=== PATIENT | female | born 1940 | race Caucasian/White ===

== ENCOUNTER 2017-12-23 23:37 | Observation (INO) | payer OTHER ==
[2017-12-23 23:42] VITALS: BMI 23.8
--- NOTE | 2017-12-23 23:57 | PDOC ---
History of Present Illness - General History Source: Care Provider (Nurse at [facility] ) Exam Limitations: No Limitations (Poor historian ) - History of Present Illness Initial Comments: 12/24/17 00:42 The patient is a 77 year old female with past medical history of schizophrenia ( catatonic) presents to the emergency department via EMS after a fall. The patient is a resident at the [facility]. As per the nurse, her neighbor found her on the floor and they needed assistance to help her up, she felt weak all over. The nurse reports she fell 2 days ago from where she stopped eating anything or taking her medication, risperidone and Ativan. The patient refused to eat anything all day today and only wanted to drink her coffee and smoke cigarettes. The patient is DNR and DNI. Allergies: No allergies. Social History: None reported <Alka Mclaughlin - Last Filed: 12/24/17 01:37> <Marilu Sotelo - Last Filed: 12/24/17 01:58> - General Chief Complaint: Injury Stated Complaint: FALL Time Seen by Provider: 12/23/17 23:57 Past History <Alka Mclaughlin - Last Filed: 12/24/17 01:37> - Suicide/Smoking/Psychosocial Hx Smoking History: Never smoked Have you smoked in the past 12 months: No Information on smoking cessation initiated: No Hx Alcohol Use: No Drug/Substance Use Hx: No <Marilu Sotelo - Last Filed: 12/24/17 01:58> - Past Medical History Allergies/Adverse Reactions: Allergies Allergy/AdvReac Type Severity Reaction Status Date / Time No Known Allergies Allergy Verified 12/24/17 00:04 Home Medications: Ambulatory Orders LORazepam [Ativan] 1 mg PO BID 12/24/17 Multivitamins [Tab-A-Vit -] 1 tab PO DAILY 12/24/17 Protein Supplement [Promod] 946 ml PO DAILY 12/24/17 Risperidone [Risperdal M-Tab] 3 mg PO BID 12/24/17 Review of Systems - Review of Systems Able to Perform ROS?: No (Unable to attain. ) <Alka Mclaughlin - Last Filed: 12/24/17 01:37> *Physical Exam - Vital Signs Last Vital Signs Temp Pulse Resp BP Pulse Ox 97.4 F L 88 18 129/64 97 12/23/17 23:41 12/23/17 23:41 12/23/17 23:41 12/23/17 23:41 12/23/17 23:41 - Physical Exam Comments: 12/24/17 00:45 GENERAL: Awake, alert, and fully oriented, in no acute distress HEAD: No signs of trauma EYES: PERRLA, EOMI, sclera anicteric, conjunctiva clear ENT: Auricles normal inspection, hearing grossly normal, nares patent, oropharynx clear without exudates. Moist mucosa NECK: Normal ROM, supple, no lymphadenopathy, JVD, or masses LUNGS: Breath sounds equal, clear to auscultation bilaterally. No wheezes, and no crackles HEART: Regular rate and rhythm, normal S1 and S2, no murmurs, rubs or gallops ABDOMEN: Soft, nontender, normoactive bowel sounds. No guarding, no rebound. No masses EXTREMITIES: (+) Left wrist bruising. (+)ecchymosis of the left shoulder, under her left arm and lateral aspect of the left ribs. Normal range of motion, no edema. No clubbing or cyanosis. No cords or tenderness NEUROLOGICAL: (+) Catatonic. Cranial nerves II through XII grossly intact. Normal speech. SKIN: Warm, Dry, normal turgor, no rashes or lesions noted. <Alka Mclaughlin - Last Filed: 12/24/17 01:37> - Vital Signs Last Vital Signs Temp Pulse Resp BP Pulse Ox 97.4 F L 88 18 129/64 97 12/23/17 23:41 12/23/17 23:41 12/23/17 23:41 12/23/17 23:41 12/23/17 23:41 <Marilu Sotelo - Last Filed: 12/24/17 01:58> ED Treatment Course - LABORATORY CBC & Chemistry Diagram: 12/24/17 00:55 12/24/17 00:55 - Medications Given in the ED: ED Medications Discontinued Medications Generic Name Dose Route Start Last Admin Trade Name Freq PRN Reason Stop Dose Admin Lorazepam 1 mg 12/24/17 00:15 12/24/17 00:23 Ativan - PO 12/24/17 00:16 1 mg ONCE ONE Administration Risperidone 3 mg 12/24/17 00:14 12/24/17 00:23 Risperdal - PO 12/24/17 00:15 3 mg ONCE ONE Administration <Alka Mclaughlin - Last Filed: 12/24/17 01:37> - LABORATORY CBC & Chemistry Diagram: 12/24/17 00:55 12/24/17 00:55 <Marilu Sotelo - Last Filed: 12/24/17 01:58> Medical Decision Making - Medical Decision Making 12/24/17 00:24 a/p: 77yo female from [facility] arrives via ambulance for eval of a fall -pt with a hx of schizophrenia -pt states she did not fall, however the fall was witnessed by the roommate -discussed the case with the nurse providing for the patient - pt is a DNR/I - faxing PANCHO to the ED -per the nurse caring for the patient, the neighbor came out and said the patient fell. the patient was seen between the bed and the closet and unable to get up without assistance. per the nurse, the patient has not taken her meds in 2 days and also hasn't eaten anything other than coffee in 2 days. second fall in 2 days. -pt unable to provide any hx -pt was willing to take her meds upon arrival in the ED - given risperidone and ativan in the ED -will obtain labs, ua, ct head and c spine -nonfocal neuro exam, other than pt is confused- but per nurse, pt is confused at baseline 12/24/17 01:03 upon getting the patient fully undressed, ecchymosis to L wrist, ecchymosis to L shoulder, ecchymosis to L lateral ribs will obtain ct chest to eval for rib fx cxr shows scoliosis and kyphosis of the t spine 12/24/17 01:[address] the [address] to CT, attempting to climb out of the stretcher, will medicate with ativan 1mg IM 12/24/17 01:55 labs reviewed, cbc and cmp without acute findings trop negative ck 385 pt will be signed out to the oncoming ed physician pending ct imaging, ua and further eval of fall tonight <Marilu Sotelo - Last Filed: 12/24/17 01:58> *DC/Admit/Observation/Transfer - Attestations Scribe Attestion: 12/24/17 00:47 Documentation prepared by Alka Mclaughlin, acting as medical director for Marilu Sotelo DO. <Alka Mclaughlin - Last Filed: 12/24/17 01:37> - Attestations Physician Attestion: 12/24/17 01:58 I, Dr. Marilu Sotelo DO, attest that this document has been prepared under my direction and personally reviewed by me in its entirety. I further attest, that it accurately reflects all work, treatment, procedures and medical decision -making performed by me. <Marilu Sotelo - Last Filed: 12/24/17 01:58> Diagnosis at time of Disposition: Fall, Shoulder contusion
[2017-12-24] MEDS ORDERED: risperiDONE 1 MG TABLET (FP) PO ONE (00:14)
[2017-12-24] MEDS ORDERED: LORazepam 1 MG TABLET PO ONE (00:15)
[2017-12-24] MEDS ORDERED: SODIUM CHLORIDE 0.9% 1000 ML INFUS.BAG IV ONE (00:16)
[2017-12-24] MEDS ORDERED: risperiDONE 0.5 MG TABLET (FP) ONE (00:17)
[2017-12-24] MEDS ORDERED: LORazepam 0.5 MG TABLET ONE (00:17)
[2017-12-24 01:08] LABS: BASO % 0.3 % (0-2.0); EOS % 0.1 % (0-4.5); HEMOGLOBIN 12.9 GM/dL (10.7-15.3); LYMPH % 14.9 % (8-40); MCH 29.2 pg (25.7-33.7); MEAN CELL VOLUME 85.8 fl (80-96); MEAN PLT VOLUME 8.2 fl (7.5-11.1); MONO % 18.3 % (3.8-10.2); NEUT % 66.4 % (42.8-82.8); PLATELET COUNT 160 K/MM3 (134-434); RBC 4.42 M/mm3 (3.60-5.2); RDW 15.5 % (11.6-15.6); WHITE BLOOD COUNT 5.6 K/mm3 (4.0-10.0)
[2017-12-24 01:49] LABS: ALBUMIN 3.5 g/dl (3.4-5.0); ANION GAP 11 (8-16); BILIRUBIN,TOTAL 0.7 mg/dL (0.2-1.0); BLOOD UREA NITROGEN 10 mg/dL (7-18); CALCIUM 8.6 mg/dL (8.5-10.1); CHLORIDE 97 mmol/L (98-107); CO2 26 mmol/L (21-32); CREATININE 0.6 mg/dL (0.55-1.02); GLUCOSE,RANDOM 86 mg/dL (74-106); POTASSIUM 3.7 mmol/L (3.5-5.1); SGOT/AST 32 U/L (15-37); SGPT/ALT 19 U/L (12-78); SODIUM 134 mmol/L (136-145); TOT PROT 6.5 g/dl (6.4-8.2)
[2017-12-24 01:50] LABS: ALK PHOS 72 U/L (45-117)
[2017-12-24 04:11] LABS: URINE APPEARANCE SLCLOUDY; URINE BILIRUBIN NEGATIVE (<2.0 mg/dL); URINE BLOOD 3+ (NEGATIVE); URINE COLOR YELLOW; URINE GLUCOSE (UA) NEGATIVE (NEGATIVE); URINE KETONE 1+ (NEGATIVE); URINE LEUK ESTERASE NEGATIVE (NEGATIVE); URINE NITRITE NEGATIVE (NEGATIVE); URINE PROTEIN NEGATIVE (NEGATIVE)
[2017-12-24 04:17] LABS: EPI CELLS RARE /HPF (FEW); URINE BACTERIA RARE /hpf (NONE SEEN); URINE HYALINE CAST 1 /lpf; URINE MUCUS RARE
--- NOTE | 2017-12-24 04:57 | PDOC ---
*Physical Exam - Vital Signs Last Vital Signs Temp Pulse Resp BP Pulse Ox 97.4 F L 88 18 129/64 97 12/23/17 23:41 12/23/17 23:41 12/23/17 23:41 12/23/17 23:41 12/23/17 23:41 ED Treatment Course - LABORATORY CBC & Chemistry Diagram: 12/24/17 00:55 12/24/17 00:55 - ADDITIONAL ORDERS Additional order review: Laboratory Results 12/24/17 12/24/17 12/24/17 00:59 00:55 00:55 Sodium 134 L Potassium 3.7 Chloride 97 L Carbon Dioxide 26 Anion Gap 11 BUN 10 Creatinine 0.6 Creat Clearance w eGFR > 60 Random Glucose 86 Calcium 8.6 Magnesium 2.0 Total Bilirubin 0.7 AST 32 ALT 19 Alkaline Phosphatase 72 Creatine Kinase 389 H Creatine Kinase Index 0.2 CK-MB (CK-2) < 1.000 Troponin I 0.02 Total Protein 6.5 Albumin 3.5 Urine Color Yellow Urine Appearance Slcloudy Urine pH 6.0 Ur Specific Butler 1.014 Urine Protein Negative Urine Glucose (UA) Negative Urine Ketones 1+ H Urine Blood 3+ H Urine Nitrite Negative Urine Bilirubin Negative Urine Urobilinogen 2.0 H Ur Leukocyte Esterase Negative Urine WBC (Auto) 2 Urine RBC (Auto) 397 Ur Epithelial Cells Rare Urine Bacteria Rare Hyaline Casts 1 Urine Mucus Rare 12/24/17 00:55 RBC 4.42 MCV 85.8 MCHC 34.0 RDW 15.5 MPV 8.2 Neutrophils % 66.4 Lymphocytes % 14.9 Monocytes % 18.3 H Eosinophils % 0.1 Basophils % 0.3 - Medications Given in the ED: ED Medications Discontinued Medications Generic Name Dose Route Start Last Admin Trade Name Freq PRN Reason Stop Dose Admin Lorazepam 1 mg 12/24/17 00:15 12/24/17 00:23 Ativan - PO 12/24/17 00:16 1 mg ONCE ONE Administration Lorazepam 1 mg 12/24/17 01:44 12/24/17 01:49 Ativan Injection - IM 12/24/17 01:45 1 mg ONCE ONE Administration Risperidone 3 mg 12/24/17 00:14 12/24/17 00:23 Risperdal - PO 12/24/17 00:15 3 mg ONCE ONE Administration Sodium Chloride 1,000 ml 12/24/17 00:16 12/24/17 04:21 Normal Saline - IV 12/24/17 00:17 Not Given ONCE ONE Medical Decision Making - Medical Decision Making 12/24/17 04:55 Pt received on signout at 2am from Dr. Sotelo pending trauma workup, UA and reassessment. CT scanner is down until after 8am so unfortunately the CT scans will not be performed tonight. Pt resting comfortably at this time. Pt was sent from [place] for FTT/refusal to take psych meds and fall 2d ago. Will admit to med obs. *DC/Admit/Observation/Transfer Diagnosis at time of Disposition: Fall, Shoulder contusion, Failure to thrive - Discharge Dispostion Admit: Yes - Referrals Referrals: Grecia Horta MD [Primary Care Provider] - - Patient Instructions - Post Discharge Activity
[2017-12-24] MEDS ORDERED: LORazepam 1 MG TABLET PO PRN (10:09)
--- NOTE | 2017-12-24 10:11 | HP ---
Admitting History and Physical - Primary Care Physician PCP: Meg Allen - Admission Chief Complaint: frequent falls History of Present Illness: ER HISTORY - History of Present Illness Initial Comments: 12/24/17 00:42 The patient is a 77 year old female with past medical history of schizophrenia ( catatonic) presents to the emergency department via EMS after a fall. The patient is a resident at the [facility]. As per the nurse, her neighbor found her on the floor and they needed assistance to help her up, she felt weak all over. The nurse reports she fell 2 days ago from where she stopped eating anything or taking her medication, risperidone and Ativan. The patient refused to eat anything all day today and only wanted to drink her coffee and smoke cigarettes. The patient is DNR and DNI. Allergies: No allergies. Social History: None reported Pt seen by me in ER-- she is known to me from [facility]. She has been falling frequently-- has unsteady gait-- refuses work up and labs. -- she is currently sedated on Ativan. Baseline--> aggressive-- wont allow anyone to examined her. Confused-- states that she is male and her name is Simba She had fallen a few days ago and sustained a bruise to her left shoulder Found to have acute/subacute stroke on CT head History Source: Medical Record, Transfer Record Limitations to Obtaining History: Dementia - Past Medical History Psych: Yes: Schizophrenia, Other (dementia) - Smoking History Smoking history: Never smoked Have you smoked in the past 12 months: No - Alcohol/Substance Use Hx Alcohol Use: No Home Medications - Allergies Allergies/Adverse Reactions: Allergies Allergy/AdvReac Type Severity Reaction Status Date / Time No Known Allergies Allergy Verified 12/24/17 00:04 - Home Medications Home Medications: Ambulatory Orders LORazepam [Ativan] 1 mg PO BID 12/24/17 Multivitamins [Tab-A-Vit -] 1 tab PO DAILY 12/24/17 Protein Supplement [Promod] 946 ml PO DAILY 12/24/17 Risperidone [Risperdal M-Tab] 3 mg PO BID 12/24/17 Review of Systems - Review of Systems Constitutional: denies: Chills, Fever Physical Examination Vital Signs: Vital Signs Temperature 97.4 F L 12/23/17 23:41 Pulse Rate 75 12/24/17 06:26 Respiratory Rate 18 12/24/17 06:26 Blood Pressure 132/56 12/24/17 06:26 O2 Sat by Pulse Oximetry (%) 97 12/24/17 06:26 Constitutional: Yes: No Distress Cardiovascular: Yes: Regular Rate and Rhythm Respiratory: Yes: CTA Bilaterally Gastrointestinal: Yes: Normal Bowel Sounds, Soft. No: Tenderness Extremities: Yes: Other (left shoulder ecchymosis) Edema: No Neurological: Yes: Other (moves all extremities-- currently fighting with the staff) Labs: CBC, BMP 12/24/17 00:55 12/24/17 00:55 Imaging - Results Cat Scan: Report Reviewed EKG: Image Reviewed (NSR) Problem List - Problems (1) CVA (cerebral vascular accident) Code(s): I63.9 - CEREBRAL INFARCTION, UNSPECIFIED (2) Failure to thrive Code(s): NHM5019 - (3) Fall Code(s): W19.XXXA - UNSPECIFIED FALL, INITIAL ENCOUNTER (4) Shoulder contusion Code(s): S40.019A - CONTUSION OF UNSPECIFIED SHOULDER, INITIAL ENCOUNTER Assessment/Plan PLAN will need restraints to prevent injury to self and others Start ASA and Lipitor Able to take her meds-- she will take her pills but refuses to eat -- was refusing in the [place] Check carotid doppler, admit to stroke floor Neurology eval check Lipid panel Ativan 1mg IM continue with meds
--- NOTE | 2017-12-24 12:57 | EKG ---
Test Reason : Blood Pressure : / mmHG Vent. Rate : 082 BPM Atrial Rate : 082 BPM P-R Int : 120 ms QRS Dur : 082 ms QT Int : 364 ms P-R-T Axes : 060 079 056 degrees QTc Int : 425 ms NORMAL SINUS RHYTHM T WAVE ABNORMALITY, CONSIDER ANTERIOR ISCHEMIA ABNORMAL ECG NO PREVIOUS ECGS AVAILABLE Confirmed by IMAN DEL ANGEL MD (Sridhar) on 12/24/2017 12:56:53 PM Referred By: Confirmed By:IMAN DEL ANGEL MD
[2017-12-24] MEDS: ATORVASTATIN CA 20 MG TABLET (FP) PO SCH (21:48)
[2017-12-24] MEDS ORDERED: RISPERIDONE 3 MG PO SCH (22:00)
[2017-12-25] MEDS: MULTIVITAMINS (DAILY MVI) TABLET (FP) PO SCH (10:25)
[2017-12-25] MEDS: ASPIRIN 81 MG CHEWABLE TABLETS PO SCH (10:25)
--- NOTE | 2017-12-25 15:48 | CON.NEURO ---
Consult - Past Medical History Psych: Yes: Schizophrenia, Other (dementia) - Alcohol/Substance Use Hx Alcohol Use: No - Smoking History Smoking history: Never smoked Have you smoked in the past 12 months: No Home Medications - Allergies Allergies/Adverse Reactions: Allergies Allergy/AdvReac Type Severity Reaction Status Date / Time No Known Allergies Allergy Verified 12/24/17 00:04 - Home Medications Home Medications: Ambulatory Orders LORazepam [Ativan] 1 mg PO BID 12/24/17 Multivitamins [Tab-A-Vit -] 1 tab PO DAILY 12/24/17 Protein Supplement [Promod] 946 ml PO DAILY 12/24/17 Risperidone [Risperdal M-Tab] 3 mg PO BID 12/24/17 Physical Exam-Neuro Vital Signs: Vital Signs Temperature 100.2 F H 12/25/17 15:15 Pulse Rate 97 H 12/25/17 15:15 Respiratory Rate 16 12/25/17 15:15 Blood Pressure 128/72 12/25/17 15:15 O2 Sat by Pulse Oximetry (%) 92 L 12/25/17 08:56 Labs: CBC, BMP 12/24/17 00:55 12/24/17 00:55 Assessment/Plan cc Abnormal Ct head findings HPI 77 year old female history of Schizophrenia ( Catatonic) came to hospital for fall. She is agitated in hospital and has been restrained. Due to fall she had ct hea and ct scan of Cx Spine. Ct scan showed there is slight heterogenous basal ganglia. Patient has not been eating and had failure to thrive. She is dnr and dni. Patient was taking occasional aspirin. She was not on statin before. She never had stroke. She do not have diabetes or hypertension. There has not been any new symptoms, except she fell . PMH above SH,ROS,FH reviewed in chart NKDA - Ambulatory Orders LORazepam [Ativan] 1 mg PO BID 12/24/17 Multivitamins [Tab-A-Vit -] 1 tab PO DAILY 12/24/17 Protein Supplement [Promod] 946 ml PO DAILY 12/24/17 Risperidone [Risperdal M-Tab] 3 mg PO BID 12/24/17 Neurological Examination Alert , follow command, not cooperative She knows she is in hospital, she could not tell me date she was able to name herself eomi, eyes clinched would not open, no face asymmetry moving all extremity sensation is grossly normal ct head reviwed Assessment- I think overall CT findings are non specific, clinically less likely to be stroke Plan- Carotid ultrasound is normal, he is on aspirin and low dose statin - at this time, I do not think she would benefit from mri of brain, as it would not change managmenet, and she is agitated and there is no change in her baseline status, mri would be difficult to perform -PT, SPEECH can be done - continue aspirin and statin continue supportive treatment Thanking you so much Jerod Marie MD
--- NOTE | 2017-12-25 19:59 | PN ---
Progress Note (short form) - Note Progress Note: Pt seen/ examined awake. no distress not very cooperative low grade temp Vital Signs Temp 100 F H 12/25/17 18:01 Pulse 77 12/25/17 18:01 Resp 18 12/25/17 18:01 BP 99/52 12/25/17 18:01 Pulse Ox 92 L 12/25/17 08:56 Intake & Output 12/24/17 12/25/17 12/25/17 23:59 11:59 23:59 Intake Total 240 130 237 Balance 240 130 237 Weight 130 lb Intake: IV 10 LFA #22 12/24/17 10 Oral 240 120 Oral Supplement 237 Other: Voiding Method Diaper Diaper Diaper # Unmeasured Voids Void 2 1 1 Bowel Movement Yes # Bowel Movements 1 Height 5 ft 2 in Active Medications Aspirin (Asa -) 81 mg PO DAILY [facility] Last Admin: 12/25/17 10:25 Dose: 81 mg Atorvastatin Calcium (Lipitor -) 20 mg PO HS [facility] Last Admin: 12/24/17 21:48 Dose: 20 mg Lorazepam (Ativan Injection -) 1 mg IM Q6H PRN PRN Reason: ANXIETY Last Admin: 12/24/17 14:35 Dose: 1 mg Multivitamins/Minerals/Vitamin C (Tab-A-Vit -) 1 tab PO DAILY [facility] Last Admin: 12/25/17 10:25 Dose: 1 tab Risperidone (Risperdal -) 3 mg PO BID [facility] CBC, BMP 12/24/17 00:55 12/24/17 00:55 Microbiology 12/24/17 04:03 Urine Culture - Final Urine - Urine - Catheterized NO GROWTH OBTAINED Physical Examination Constitutional: Yes: No Distress. calm Cardiovascular: Yes: Regular Rate and Rhythm Respiratory: Yes: clear Gastrointestinal: Yes: Normal Bowel Sounds, Soft. No: Tenderness Edema: No Imaging - Results Cat Scan: Report Reviewed EKG: Image Reviewed (NSR) Problem List - Problems (1) CVA (cerebral vascular accident) Code(s): I63.9 - CEREBRAL INFARCTION, UNSPECIFIED (2) Failure to thrive Code(s): PFJ0717 - (3) Fall Code(s): W19.XXXA - UNSPECIFIED FALL, INITIAL ENCOUNTER (4) Shoulder contusion Code(s): S40.019A - CONTUSION OF UNSPECIFIED SHOULDER, INITIAL ENCOUNTER Assessment/Plan continue present care safety measures neurology consult appreciated monitor for fever fall precautions . will follow
[2017-12-25] MEDS: ATORVASTATIN CA 20 MG TABLET (FP) PO SCH (21:09)
[2017-12-25] MEDS: risperiDONE 1 MG TABLET (FP) PO SCH (21:09)
--- NOTE | 2017-12-26 09:14 | PN ---
Progress Note (short form) - Note Progress Note: pt seen/ examined overall conditon same periods of agitation afebrile Vital Signs Temp 98.4 F 12/26/17 01:37 Pulse 71 12/26/17 01:37 Resp 20 12/26/17 01:37 BP 124/69 12/26/17 01:37 Pulse Ox 92 L 12/25/17 21:00 Intake & Output 12/25/17 12/25/17 12/26/17 11:59 23:59 11:59 Intake Total 130 307 Balance 130 307 Weight 130 lb Intake: IV 10 10 LFA #22 12/24/17 10 10 Oral 120 60 Oral Supplement 237 Other: Voiding Method Diaper Diaper # Unmeasured Voids Void 1 1 Bowel Movement Yes # Bowel Movements 1 Height 5 ft 2 in Active Medications Aspirin (Asa -) 81 mg PO DAILY [facility] Last Admin: 12/25/17 10:25 Dose: 81 mg Atorvastatin Calcium (Lipitor -) 20 mg PO HS [facility] Last Admin: 12/25/17 21:09 Dose: 20 mg Lorazepam (Ativan Injection -) 1 mg IM Q6H PRN PRN Reason: ANXIETY Last Admin: 12/24/17 14:35 Dose: 1 mg Multivitamins/Minerals/Vitamin C (Tab-A-Vit -) 1 tab PO DAILY [facility] Last Admin: 12/25/17 10:25 Dose: 1 tab Risperidone (Risperdal -) 3 mg PO BID [facility] Last Admin: 12/25/17 21:09 Dose: 3 mg CBC, BMP 12/24/17 00:55 12/24/17 00:55 Microbiology 12/24/17 04:03 Urine Culture - Final Urine - Urine - Catheterized NO GROWTH OBTAINED Physical Examination Constitutional: Yes: No Distress. Cardiovascular: Yes: Regular Rate and Rhythm Respiratory: Yes: clear Gastrointestinal: Yes: Normal Bowel Sounds, Soft. No: Tenderness Edema: No Imaging - Results Cat Scan: Report Reviewed EKG: Image Reviewed (NSR) Assessment/Plan clinically stable continue present care safety measures monitor fall precautions . will follow
[2017-12-26] MEDS ORDERED: PT OWN MED DRAWER 7, Y5N ONE (09:49)
[2017-12-26] MEDS: risperiDONE 1 MG TABLET (FP) PO SCH ×2 (10:44→21:05)
[2017-12-26] MEDS: MULTIVITAMINS (DAILY MVI) TABLET (FP) PO SCH (10:44)
[2017-12-26] MEDS: ASPIRIN 81 MG CHEWABLE TABLETS PO SCH (10:44)
[2017-12-26] MEDS: ATORVASTATIN CA 20 MG TABLET (FP) PO SCH (21:05)
[2017-12-27] MEDS ORDERED: PT OWN MED DRAWER 7, Y5N ONE ×2 (10:40→20:16)
[2017-12-27] MEDS: ASPIRIN 81 MG CHEWABLE TABLETS PO SCH (11:02)
[2017-12-27] MEDS: MULTIVITAMINS (DAILY MVI) TABLET (FP) PO SCH (11:02)
[2017-12-27] MEDS: risperiDONE 1 MG TABLET (FP) PO SCH ×2 (11:02→21:10)
--- NOTE | 2017-12-27 14:07 | PN ---
Progress Note (short form) - Note Progress Note: No distress but not cooperative. pulls out ivs. says she is Simba ! no distress Vital Signs Temp 97.0 F L 12/26/17 22:00 Pulse 74 12/27/17 10:00 Resp 18 12/27/17 10:00 BP 160/78 12/27/17 10:00 Pulse Ox 94 L 12/27/17 10:00 Intake & Output 12/26/17 12/27/17 12/27/17 23:59 11:59 23:59 Intake Total 170 250 Balance 170 250 Intake: Oral 170 250 Other: Voiding Method Incontinent Toilet # Unmeasured Voids Void 2 Active Medications Aspirin (Asa -) 81 mg PO DAILY [facility] Last Admin: 12/27/17 11:02 Dose: 81 mg Atorvastatin Calcium (Lipitor -) 20 mg PO HS [facility] Last Admin: 12/26/17 21:05 Dose: 20 mg Lorazepam (Ativan Injection -) 1 mg IM Q6H PRN PRN Reason: ANXIETY Multivitamins/Minerals/Vitamin C (Tab-A-Vit -) 1 tab PO DAILY [facility] Last Admin: 12/27/17 11:02 Dose: 1 tab Risperidone (Risperdal -) 3 mg PO BID [facility] Last Admin: 12/27/17 11:02 Dose: 3 mg CBC, BMP 12/24/17 00:55 12/24/17 00:55 Physical Examination Constitutional: Yes: No Distress. Cardiovascular: Yes: Regular Rate and Rhythm Respiratory: Yes: clear Gastrointestinal: Yes: Normal Bowel Sounds, Soft. No: Tenderness Edema: No Imaging - Results Cat Scan: Report Reviewed EKG: Image Reviewed (NSR) Assessment/Plan Alejandrina for safety not eating continue present care safety measures monitor fall precautions . will consult-- Psychiatry. will follow
[2017-12-27] MEDS: ATORVASTATIN CA 20 MG TABLET (FP) PO SCH (21:10)
[2017-12-28] MEDS: MULTIVITAMINS (DAILY MVI) TABLET (FP) PO SCH (09:09)
[2017-12-28] MEDS: risperiDONE 1 MG TABLET (FP) PO SCH (09:09)
[2017-12-28] MEDS: ASPIRIN 81 MG CHEWABLE TABLETS PO SCH (10:00)
--- NOTE | 2017-12-28 11:02 | CON.PSY ---
Psychiatry Consult Chief Complaint: 77 year old female with Chronic Schizophrenia, lives in SNF. admitted after afall. Non acute changes in Mental SDtatus. Symptoms: reports: Restlessness, Disorganized/Disruptive Thoughts - Previous Psychiatric Treatment Outpatient: None Inpatient: None - Previous Substance Abuse Treatment Outpatient: None Inpatient: None - Reason for Previous Treatment Reason for Previous Treatment: Psychotic Episode - Current Medications Current Medications: Active Medications Aspirin (Asa -) 81 mg PO DAILY [facility] Last Admin: 12/27/17 11:02 Dose: 81 mg Atorvastatin Calcium (Lipitor -) 20 mg PO HS [facility] Last Admin: 12/27/17 21:10 Dose: 20 mg Lorazepam (Ativan Injection -) 1 mg IM Q6H PRN PRN Reason: ANXIETY Multivitamins/Minerals/Vitamin C (Tab-A-Vit -) 1 tab PO DAILY [facility] Last Admin: 12/28/17 09:09 Dose: 1 tab Risperidone (Risperdal -) 3 mg PO BID [facility] Last Admin: 12/28/17 09:09 Dose: 3 mg - Allergies Allergies: Allergies Allergy/AdvReac Type Severity Reaction Status Date / Time No Known Allergies Allergy Verified 12/24/17 00:04 - Current Living Status Usual Living Arrangement: Residential - Current Mental Status Evaluation Appearance: Disheveled Attitude: Uncooperative - Affect Affect: Constrictive - Mood Mood: Irritable - Speech/Language Expressive: Delayed - Psychomotor Activity Psychomotor Activity: Slowed - Thought Process Thought Process: Loosening of Associations - Thought Content Hallucinations: Absent Delusions: Absent - Self Perception Self Perception: Depersonalization - Cognition Attention: Diminished Memory, Immediate Recall: Impaired Memory, Short Term: 2/3 Memory, Remote with Promptin/3 - Concentration Serial Sevens Intact: No Simple Calculations Intact: No - Abstraction Proverb Interpretation: Impaired Judgement: Minimally Impaired - Insight Insight: Impaired - Impulse Control Impulse Control: Minimally Impaired - Suicidal Ideation Suicidal Ideation: No - Homicidal Ideation Homicidal Ideation: No Assessment/Plan 1) Return to Home.
--- NOTE | 2017-12-28 12:24 | DS ---
Physical Examination Vital Signs: Vital Signs Temperature 98.0 F 12/28/17 06:00 Pulse Rate 88 12/28/17 06:00 Respiratory Rate 20 12/28/17 06:00 Blood Pressure 146/88 12/28/17 06:00 O2 Sat by Pulse Oximetry (%) 94 L 12/27/17 21:00 Findings/Remarks: comfortable no complains mood stable eating better psych consult noted Constitutional: Yes: No Distress, Calm Neck: Yes: Supple Cardiovascular: Yes: Regular Rate and Rhythm Respiratory: Yes: CTA Bilaterally Gastrointestinal: Yes: Soft Edema: No Neurological: Yes: Alert Labs: CBC, BMP 12/24/17 00:55 12/24/17 00:55 Discharge Summary Reason For Visit: FALL CONTUSION OF SHOULDER,FAILURE TO THRIVE Current Active Problems CVA (cerebral vascular accident) (Acute) Failure to thrive (Acute) Fall (Acute) Shoulder contusion (Acute) Hospital Course: The patient is a 77 year old female with past medical history of schizophrenia ( catatonic) presents to the emergency department via EMS after a fall. The patient is a resident at the [facility]. As per the nurse, her neighbor found her on the floor and they needed assistance to help her up, she felt weak all over. The nurse reports she fell 2 days ago from where she stopped eating anything or taking her medication, risperidone and Ativan. The patient refused to eat anything all day today and only wanted to drink her coffee and smoke cigarettes. The patient is DNR and DNI. monitored overall stable not cooperative many times Essentially pschy issues seen by psych cleared for d/c Pt need close psych f/u in shelter meds reconcilled will d/c to shelter today Discussed with nursing staff. Condition: Stable - Instructions Referrals: Grecia Horta MD [Primary Care Provider] - Disposition: HALFWAY FACILITY - Home Medications Comprehensive Discharge Medication List: Ambulatory Orders LORazepam [Ativan] 1 mg PO BID 12/24/17 Multivitamins [Multivit ([facility] Formulary)] 1 tab PO DAILY 12/24/17 Protein Supplement [Promod] 946 ml PO DAILY 12/24/17 Risperidone [Risperdal M-Tab] 3 mg PO BID 12/24/17 Aspirin [ASA -] 81 mg PO DAILY tab.chew 12/28/17 Atorvastatin Ca [Lipitor] 20 mg PO HS tablet 12/28/17
[2017-12-28 13:31] VITALS: BP 121/48; PULSE 80; TEMP 97.2
== END 2017-12-28 16:18 ==
LOC: JER 23:37 → JERBED 12-24 05:01 → UNDOADMOB 12-24 05:50 → JERBED 12-24 05:50 → J4S 12-24 14:00
PROVIDERS: ADMIT Internal Medicine; ATTEND Internal Medicine
PROC: 3E023GC Introduction of Other Therapeutic Substance into Muscle, Percutaneous Approach (ICD-10-PCS; principal; 2017-12-24)
DX: S40.012A Contusion of left shoulder, initial encounter (principal); I63.9 Cerebral infarction, unspecified; R62.7 Adult failure to thrive; W19.XXXA Unspecified fall, initial encounter; Z91.81 History of falling; Y93.9 Activity, unspecified; Y92.122 Bedroom in nursing home as the place of occurrence of the external cause; F20.2 Catatonic schizophrenia; Z79.82 Long term (current) use of aspirin
CPT/HCPCS: 36415; 70450-TC; 71045-TC-FY; 71250-TC; 72125-TC; 76775-TC; 76856-TC; 80053; 80061; 81003; 81015; 82550; 82553; 82607; 83721; 83735; 84443; 84484; 85025; 87086; 93005; 93010; 93880-TC; 96372; 97161-GP; 99283-25; G0378; J2794

== ENCOUNTER 2018-08-25 12:06 | Emergency (ER) | payer OTHER ==
[2018-08-25 12:48] VITALS: TEMP 97.9; BMI 16.5
--- NOTE | 2018-08-25 13:34 | PDOC ---
History of Present Illness - General Chief Complaint: Injury Stated Complaint: Shoulder Dislocation Time Seen by Provider: 08/25/18 12:51 - History of Present Illness Initial Comments: 78yo F with PMH of schizophrenia, frequent falls, dementia, COPD presenting with R. shoulder disclocation. Per [facility], patient had redness on her shoulder that was noticed on 08/18. This prompted them to order an xray on which was positive for shoulder dislocation. Attempts to obtain orthopedic evaluation was taking too long, so Dr. Weiner, the medical imaging technologist, sent the patient to this ED. Kenisha reports that patient has been at her baseline with no fevers, chills, or other acute complaints. Patient is unable to provide history due to her dementia. Past History - Past Medical History Allergies/Adverse Reactions: Allergies Allergy/AdvReac Type Severity Reaction Status Date / Time No Known Allergies Allergy Verified 08/25/18 12:27 Home Medications: Ambulatory Orders Multivitamins [Multivit ([facility] Formulary)] 1 tab PO DAILY 12/24/17 Risperidone [Risperdal M-Tab] 2 mg PO BID 12/24/17 Aspirin [ASA -] 81 mg PO DAILY tab.chew 12/28/17 Atorvastatin Ca [Lipitor] 20 mg PO HS tablet 12/28/17 Albuterol 0.083% Nebulizer Mily [Ventolin 0.083%] 1 neb NEB Q4H PRN 08/25/18 Megestrol Acetate [Megace Es] 625 mg PO DAILY 08/25/18 Memantine HCl [Namenda -] 10 mg PO DAILY 08/25/18 Mirtazapine 7.5 mg PO HS 08/25/18 Nuedexta 20-10 mg Capsule 1 tab PO BID 08/25/18 COPD: Yes CHF: No Dementia: Yes (with behavioral disturbance) Disorders: Yes (vaginal bleeding) Hypercholesterolemia: Yes Psychiatric Problems: Yes (schizoprenia,anxiety,) Other medical history: DNR< HEALTH CARE POXY - Suicide/Smoking/Psychosocial Hx Smoking History: Never smoked Have you smoked in the past 12 months: No Information on smoking cessation initiated: No Hx Alcohol Use: No Drug/Substance Use Hx: No Review of Systems - Review of Systems Able to Perform ROS?: No *Physical Exam - Vital Signs Last Vital Signs Temp Pulse Resp BP Pulse Ox 97.9 F 82 16 94/65 100 08/25/18 12:06 08/25/18 12:06 08/25/18 12:06 08/25/18 12:06 08/25/18 12:06 - Physical Exam Comments: General: Awake, alert, and not oriented, in no acute distress Head: No signs of trauma Eyes: EOMI, sclera anicteric ENT: Dry mucus membranes Neck: Normal ROM, supple Lungs: Lungs clear, Normal breath sounds Cardio: Regular rhythm, S1 and S2 present Abdomen: Soft, nontender. No guarding, no rebound, no masses R. shoulder: Limited range of motion; tenderness to posterior right shoulder upon palpation; no erythema noted SKIN: Warm, Dry, normal turgor Neurologic: Cranial nerves II through XII grossly intact. Moderate Sedation - Procedure Monitoring Vital Signs: Procedure Monitoring Vital Signs Temperature 97.9 F 08/25/18 12:06 Pulse Rate 82 08/25/18 12:06 Respiratory Rate 16 08/25/18 12:06 Blood Pressure 94/65 08/25/18 12:06 O2 Sat by Pulse Oximetry (%) 100 08/25/18 12:06 Medical Decision Making - Medical Decision Making 78yo F with PMH of schizophrenia, frequent falls, dementia, COPD presenting with R. shoulder disclocation. -R. shoulder radiograph -Consult ortho -Imaging on 08/21 from [facility]'s documentation: 1. Chronic appearing dislocation of the humeral head. No prior studies are available for comparison. 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 08/25/18 13:10 Radiograph today: Extensive glenohumeral joint arthropathy with soft tissue calcifications deformed humeral head, remodeling of the glenoid, dislocation of the glenohumeral joint. No significant interval change in comparison to the CT of [facility] chest December 24, 2017. This is a chronic dislocation. Discussed case with Dr. Ariza over the phone who recommended CT of the shoulder to investigate interval changes. Call to [facility]: Patient has had an abnormal-appearing shoulder for many months. They are not aware of any history of dislocation. Ortho came and evaluated patient. Given this is a chronic dislocation, decision made for outpatient follow-up with orthopedist as this does not need to be repaired emergently. Plan to discharge 08/25/18 18:11 Updated [facility] 12/26/18 18:31 *DC/Admit/Observation/Transfer Diagnosis at time of Disposition: Shoulder dislocation - Discharge Dispostion Disposition: HOME Condition at time of disposition: Stable - Referrals Referrals: Meg Allen MD [Primary Care Provider] - Jose Ariza DO [Staff Physician] - - Patient Instructions Printed Discharge Instructions: DI for Shoulder Dislocation Additional Instructions: Mrs. García was evaluated for shoulder dislocation. Since this is chronic over several months, Dr. Ariza, the orthopedic assistant, recommends outpatient follow-up in 1-2 weeks ([phone]) as surgical intervention is not required on an emergent basis. In addition, outpatient MRI of the right shoulder is recommended to rule out rotator cuff arthropathy. - Post Discharge Activity
--- NOTE | 2018-08-25 15:15 | PDOC ---
Attending Attestation - Resident Resident Name: Lisa Gallego - ED Attending Attestation I have performed the following: I have examined & evaluated the patient, The case was reviewed & discussed with the resident, I agree w/resident's findings & plan, Exceptions are as noted - HPI HPI: 08/25/18 15:00 The patient is a 77 year old female with past medical history of schizophrenia ( catatonic) presents to the emergency department via EMS from [facility] after staff noticed slight redness on her R shoulder. Concerned for a fall, they obtained a X ray that showed a chronic R shoulder dislocation. The patient is unable to provide history regarding any injuries related to her shoulder. Allergies: penicillins Social History: lives in [place]. No toxic habits. - Physicial Exam PE: 08/25/18 15:14 "GENERAL: Awake, alert, in no acute distress. HEAD: No signs of trauma EYES: PERRLA, EOMI, sclera anicteric, conjunctiva clear ENT: Auricles normal inspection, hearing grossly normal, nares patent, oropharynx clear without exudates. Moist mucosa NECK: Nontender, no stepoffs, Normal ROM, supple, no lymphadenopathy, JVD, or masses LUNGS: Breath sounds equal, clear to auscultation bilaterally. No wheezes, and no crackles HEART: Regular rate and rhythm, normal S1 and S2, no murmurs, rubs or gallops ABDOMEN: Soft, nontender, normoactive bowel sounds. No guarding, no rebound. No masses EXTREMITIES: + R shoulder with TTP posterior labrum, ROM limited 2/2 pain NEUROLOGICAL: Cranial nerves II through XII intact. 5/5 strength and sensation in all extremities SKIN: Warm, Dry, normal turgor, no rashes or lesions noted. - Medical Decision Making 08/25/18 15:15 78 F with likely chronic R shoulder dislocation. - Repeat XR - Ortho consult 08/25/18 18:00 XR consistent with chronic dislocation CT ordered to confirm Pt evaluated by Dr. Ariza, who recommends outpt f/u. Pt is well appearing, with normal vitals. Clinically stable for DC at this time. I discussed the physical exam findings, ancillary test results and final diagnoses with the patient. I answered all of the patient's questions. The patient was satisfied with the care received and felt comfortable with the discharge plan and treatment plan. The patient agrees to follow up with the primary care physician within 24-72 hours.
--- NOTE | 2018-08-25 17:27 | CONSULT ---
Consult - text type - Consultation Consultation Note: ORTHOPEDIC SURGERY CONSULTATION NOTE Department of Orthopedic Surgery HISTORY OF PRESENT ILLNESS Ms. García is a 78 year old female who presents to [facility] Emergency Room with a chronic right shoulder dislocation. Patient is a poor historian. The orthopedic service was consulted for right shoulder dislocation. There was no fall or incident/injury as per the fpc. The patient has no pain in her upper or lower extremities. Denies any other injuries. Denies numbness, tingling or other constitutional complaints. She denies/Endorses tobacco use, drug use, alcohol abuse. The patient lives at a fpc. FAMILY HISTORY na REVIEW OF SYMPTOMS A twelve-point review of systems was performed and was negative except as noted in HPI. PHYSICAL EXAM Constitutional: Appears well-developed and well-nourished. No acute distress, appropriate mood and affect. Able to follow commands. Right Upper Extremity: Skin warm, dry, and intact; no lesions, rashes or ulcers noted. Muscle mass equal and symmetric to contralateral side. No atrophy noted. No masses or effusions noted. No tender to palpation at of right shoulder. There is a mild deformity of the right shoulder with anterior protrusion of the humeral head. No skin tenting. Patient actively able to flex and abduct shoulder with no pain. LROM secondary flexion and abduction passively and actively due to chronic dislocation. Nontender throughout rest of extremity. Full passive and active ROM, free from pain of elbow, wrist, and fingers. Joints stable with no pathologic laxity. M/R/U/MSK/AX motor intact; SILT distally; 2+ radial pulses; Cap refill brisk. Tone and reflexes normal. Left Upper Extremity: Skin warm, dry, and intact; no lesions, rashes or ulcers noted. Muscle mass equal and symmetric to contralateral side. No atrophy noted. No masses or effusions noted. No tenderness to palpation all joints; nontender throughout rest of extremity. Limited active and passive ROM in flexion and abduction, likely due to arthritis. FROM actively and passively of the elbow, wrist, and fingers, free from pain. Joints stable with no pathologic laxity. M/R /U/MSK/AX motor intact; SILT distally; 2+ radial pulses; Cap refill brisk. Tone and reflexes normal. Right Lower Extremity: Skin warm, dry, and intact; no lesions, rashes or ulcers noted. Muscle mass equal and symmetric to contralateral side. No atrophy noted. No masses or effusions noted. No tenderness to palpation all joints; nontender throughout rest of extremity. Negative log roll, and negative straight leg raise. No cords or calf tenderness. No significant calf/ankle edema. Full passive and active ROM, free from pain. Joints stable with no pathologic laxity. EHL/TA/GS motor intact; SILT distally; 2+ DP pulses; Cap refill brisk. Tone and reflexes normal. Left Lower Extremity: Skin warm, dry, and intact; no lesions, rashes or ulcers noted. Muscle mass equal and symmetric to contralateral side. No atrophy noted. No masses or effusions noted. No tenderness to palpation all joints; nontender throughout rest of extremity. Negative log roll, and negative straight leg raise. No cords or calf tenderness. No significant calf/ankle edema. Full passive and active ROM, free from pain. Joints stable with no pathologic laxity. EHL/TA/GS motor intact; SILT distally; 2+ DP pulses; Cap refill brisk. Tone and reflexes normal. Past Medical History Psych Schizophrenia,Other Social History Smoking history Never smoked Hx Alcohol Use No Usual Living Arrangement Correction Allergies Allergy/AdvReac Type Severity Reaction Status Date / Time No Known Allergies Allergy Verified 08/25/18 12:27 Vital Signs (last) Temp Pulse Resp BP Pulse Ox 97.9 F 82 16 94/65 100 08/25/18 12:06 08/25/18 12:06 08/25/18 12:06 08/25/18 12:06 08/25/18 12:06 Intake and Output 08/23/18 08/24/18 08/25/18 23:59 23:59 23:59 Other: Weight 90 lb Height 5 ft 2 in Body Mass Index (BMI) 16.5 IMAGING I personally reviewed all radiographs, CT, and other imaging. They demonstrate a chronic right shoulder dislocation with evidence of erosion of the glenoid, and rtc arthropathy. There are no fractures, or bony lesions seen. ASSESSMENT AND PLAN Ms. García is a 78 year old female presenting with a right sided chronic shoulder dislocation and rotator cuff arthropathy. We have reviewed the imaging and clinical findings in detail, as well as their potential implications. Plan: due to the chronicity of the dislocation, we do not anticipate performing any surgery on her right shoulder at this time, especially due to her having decent range of motion of both of her shoulders. recommend outpatient MRI of the right shoulder to rule out rotator cuff arthropathy. no further orthopedic surgical intervention at this time. All questions were answered. Thank you for involving our team in the care of this patient. Please have patient follow up in our office in 1-2 weeks [phone].
[2018-08-25 18:22] VITALS: BP 105/64; PULSE 78
== END 2018-08-25 19:18 ==
LOC: JER 12:06
DX: M24.411 Recurrent dislocation, right shoulder (principal); M12.811 Other specific arthropathies, not elsewhere classified, right shoulder; F03.91 Unspecified dementia, unspecified severity, with behavioral disturbance; F20.2 Catatonic schizophrenia; H44.9 Unspecified disorder of globe; R29.6 Repeated falls
CPT/HCPCS: 71045-TC-FY; 73030-TC-RT-FY; 73200-TC-RT; 99281-25